=== PATIENT | male | born 1960 | race Two or more races ===

== ENCOUNTER 2016-11-17 21:34 | Emergency (ER) | payer MEDICARE, MEDICAID ==
[2016-11-17 21:44] VITALS: BP 133/83
[2016-11-17] MEDS ORDERED: HYDROcodone/ACETAMIN 5-325 MG* 1 TAB PO ONE ×2 (22:50→23:19)
--- NOTE | 2016-11-17 22:55 | ED ---
Upper Extremity Pain - HPI Summary HPI Summary: Rt hand dominant pt here w/ Rt arm pain after using a hammer aggressively and carrying heavy objects aroun 16L:00 today. Pt reports 30 minutes later, he develop pain, stiffness and swelling. Has developed dark bruising now as well. Denies numbness, tingling, weakness. Still moving UE but can't fully flex elbow d/t pain/stiffness and has pain/stiffness w/ attempted end range extension. Takes ASA daily. Otherwise, no health issues. - History of Current Complaint Chief Complaint: EDExtremityUpper Stated Complaint: RT ARM INJURY Time Seen by Provider: 11/17/16 22:24 Hx Obtained From: Patient - Allergies/Home Medications Allergies/Adverse Reactions: Allergies Allergy/AdvReac Type Severity Reaction Status Date / Time No Known Allergies Allergy Verified 11/17/16 21:41 PMH/Surg Hx/FS Hx/Imm Hx Previously Healthy: Yes Endocrine/Hematology History: Denies: Hx Anticoagulant Therapy - ASA daily, Hx Blood Disorders Cardiovascular History: Reports: Hx Hypertension - takes meds - controlled Musculoskeletal History: Reports: Other Musculoskeletal History - H/o Rt shoulder dislocation as a youth Infectious Disease History: No Infectious Disease History: Denies: Traveled Outside the [place] in Last 30 Days - Family History Known Family History: Positive: None - Social History Occupation: Retired Lives: With Family - staying with son - he's from [facility] Alcohol Use: Weekly - "few beers on weekends" Hx Substance Use: No Substance Use Type: Reports: None Hx Tobacco Use: No Smoking Status (MU): Never Smoked Tobacco Review of Systems Constitutional: Negative Negative: Fever, Chills, Fatigue Negative: Vomiting, Nausea Positive: no symptoms reported Musculoskeletal: Other - see HPI Positive: Bruising - see HPI Neurological: Negative Negative: Weakness, Paresthesia, Numbness Psychological: Normal All Other Systems Reviewed And Are Negative: Yes Physical Exam Triage Information Reviewed: Yes Vital Signs On Initial Exam: Initial Vitals Temp Pulse Resp BP Pulse Ox 98.7 F 83 18 133/83 99 11/17/16 21:40 11/17/16 21:40 11/17/16 21:40 11/17/16 21:40 11/17/16 21:40 Vital Signs Reviewed: Yes Appearance: Positive: Well-Appearing, Well-Nourished, Pain Distress - mild Skin: Positive: Warm, Dry - purpuric ecchymosis over distal ventral Rt bicep w/ early signs of ecchymosis over an edematous and firm bicep Head/Face: Positive: Normal Head/Face Inspection Eyes: Positive: EOMI ENT: Positive: Hearing grossly normal Respiratory/Lung Sounds: Positive: Breath Sounds Present Cardiovascular: Positive: Pulses are Symmetrical in both Upper and Lower Extremities Musculoskeletal: Positive: Strength/ROM Intact - wrist, phalanges, shoulder FROM w/o pain or restriction, Limited @ - Rt elbow extension and flexion limited d/t pain, swelling Neurological: Positive: Normal, Sensory/Motor Intact, Alert, Oriented to Person Place, Time, CN Intact II-III Psychiatric: Positive: Anxious Diagnostics - Vital Signs Vital Signs Temp Pulse Resp BP Pulse Ox 11/17/16 21:40 98.7 F 83 18 133/83 99 - Laboratory Lab Statement: Any lab studies that have been ordered have been reviewed, and results considered in the medical decision making process. Re-Evaluation - Re-Evaluation First Eval Change: Improved Course/Dx - Course Course Of Treatment: Pt appears to have biceps rupture - spoke w/ Dr. Soriano. She advised gently stretches to avoid stiffness, NSAID 600mg BID and sling for comfort. She will see him to discuss repair or he may go back to [facility] to meet with his orthopedist - explained he should be seen in the next couple of days for best outcomes. Reviewed danger s/sx of when to return to ED. Pt agrees w/ plan. - Diagnoses Provider Diagnoses: Rupture of right biceps tendon - Physician Notifications Discussed Care of Patient With: Karen Soriano Discharge - Discharge Plan Condition: Stable Disposition: HOME Patient Education Materials: Tendon Rupture (ED) Referrals: Karen Soriano MD [Medical Doctor] - Additional Instructions: You appear to have torn your bicep muscle in your Right arm. It is important that you rest this muscle. You may GENTLY bend and straighten your elbow to prevent stiffness but DO NOT LIFT, PULL, ETC as you can make this injury worse. Use your sling for comfort as needed. You may apply ice to the area for pain and swelling. You may also take 600mg of ibuprofen 2 times a day - DO NOT EXCEED THIS AMOUNT IT MAY INCREASE BLEEDING IN ARM You may take norco as needed for breakthrough pain Follow-up with orthopedics . Call tomorrow to schedule an appointment with your orthopedist back home or call Dr. Soriano if you decide to stay local. She will see you for . She will discuss options for treatment. *If you develop numbness, tingling, weakness, worsening of pain, return to ED
[2016-11-17] MEDS ORDERED: Ibuprofen TAB* 600 MG PO ONE (23:01)
== END 2016-11-17 23:42 | disposition home or self-care (01) ==
LOC: ED 21:34
DX: S46.211A Strain of muscle, fascia and tendon of other parts of biceps, right arm, initial encounter (principal); X50.9XXA Other and unspecified overexertion or strenuous movements or postures, initial encounter; Y93.9 Activity, unspecified; Y92.9 Unspecified place or not applicable
CPT/HCPCS: 99282; A9270-GY

== ENCOUNTER 2017-12-22 06:10 | Day surgery (SDC) | payer MEDICARE, MEDICAID ==
--- NOTE | 2017-12-09 12:13 | HP ---
PREOPERATIVE HISTORY AND PHYSICAL: DATE OF ADMISSION/SURGERY: 12/22/17 DATE OF OFFICE VISIT: 12/07/17 ATTENDING SURGEON: Dr. Karen Soriano.* (DICTATED BY LOLI RICHARD) PROCEDURE: Right shoulder arthroscopic rotator cuff repair, decompression, and debridement. CHIEF COMPLAINT: Right shoulder pain. HISTORY OF PRESENT ILLNESS: Nj is a 57-year-old male who presented to clinic for followup visit for his right shoulder due to a rotator cuff tear. He failed conservative measures, continued to have pain, and therefore has agreed to undergo right shoulder arthroscopic rotator cuff repair, decompression, and debridement with Dr. Soriano on 12/22/17. PAST MEDICAL HISTORY: Hypertension and high cholesterol. PAST SURGICAL HISTORY: ORIF of the right ankle and hernia surgery as a child. The patient denies prior complications with anesthesia. MEDICATIONS: 1. Lisinopril 20 mg 1 by mouth every day. 2. Aspirin 81 mg 1 by mouth every day. 3. Chlorthalidone 25 mg one-half by mouth every day. 4. Vitamin D 1000 units 1 by mouth daily. 5. Atorvastatin 20 mg 1 by mouth daily. ALLERGIES: No known drug allergies. FAMILY HISTORY: Diabetes, hypertension, and cancer. SOCIAL HISTORY: He lives alone. He is disabled. He denies tobacco use. He reports regular alcohol consumption. He denies illegal drug use. REVIEW OF SYSTEMS: A 14-point review of systems was reviewed with patient. Positive for current complaint, otherwise negative. Denies history of fever, chills, history of shortness of breath, history of DVT or PE, history of bleeding disorder, history of MRSA. PHYSICAL EXAMINATION GENERAL: A 57-year-old well-developed, well-nourished male in no acute distress. Alert and oriented x3. Appropriate mood and affect. Good balance and coordination of the upper extremities. VITAL SIGNS: Height 69.5, weight 184, blood pressure 124/80, respiratory rate 18, temperature 97.9, BMI 26.8. HEENT: Normocephalic, atraumatic. PERRLA. Throat clear. NECK: Supple. PULMONARY: Lungs clear to auscultation bilaterally. No wheezing, rhonchi, or rales. CARDIO: Regular rate and rhythm, S1, S2. No murmurs, gallops, or rubs. No edema. ABDOMEN: Positive bowel sounds. Soft, nontender. NEURO: Alert and oriented x3. Cranial nerves grossly intact. EXTREMITIES: Right upper extremity: Skin is intact. No warmth or erythema. No obvious Seymour deformity. Forward flexion and abduction 160, external rotation 70. +4/5 strength with supraspinatus testing. +2 radial pulse. Sensation is intact to light touch distally. DIAGNOSTIC STUDIES: MRI revealed full-thickness tear of the supraspinatus tendon, degenerative changes of the posterior and superior labrum, and evidence of biceps tear. Subscapularis appears intact. IMPRESSION: Right shoulder rotator cuff tear. PLAN: The patient is scheduled to undergo a right shoulder arthroscopic rotator cuff repair, decompression, and debridement with Dr. Soriano on . Percocet will be used for postop pain management. He will follow up 10 to 14 days postop for followup and suture removal. LOLI RICHARD [id number]/[facility] #: [id number] [facility]ITALPanch[facility]
[~2017-12-22 06:10] MED LIST: Buffered Lidocaine 0.9% SYRIN* 5 ML/SYR SYRINGE INTRADERM ONE; Dexamethasone IV* 4 MG/ML 1 ML (4 MG) IV SLOW PU ONE; Famotidine IV* 10 MG/ML 2 ML (20 mg) IV ONE
[2017-12-22] MEDS ORDERED: Dexamethasone IV* 4 MG/ML 1 ML (4 MG) ONE (06:28)
[2017-12-22] MEDS ORDERED: Famotidine IV* 10 MG/ML 2 ML (20 mg) ONE (06:28)
[2017-12-22] MEDS ORDERED: ceFAZolin 2 GM in NS PREMIX(*) 2 GM/100 ML BAG IVPB ONE (06:28)
[2017-12-22] MEDS ORDERED: Propofol* 10 MG/ML 20 ML BTL IV PUSH ONE (07:10)
[2017-12-22] MEDS ORDERED: Atracurium* 10 MG/ML 10 ML VIAL ONE (07:10)
[2017-12-22] MEDS ORDERED: fentaNYL* 50 MCG/ML 2 ML VIAL (100 MCG VIAL) ONE ×2 (07:10→08:30)
[2017-12-22] MEDS ORDERED: Ondansetron INJ* 2 MG/ML VIAL ONE (07:10)
[2017-12-22] MEDS ORDERED: Midazolam* 1 MG/ML 5 ML VIAL (5 MG) ONE (07:10)
[2017-12-22] MEDS ORDERED: Ketorolac INJ* 30 MG/ML 1 ML VIAL ONE (07:10)
[2017-12-22] MEDS ORDERED: Lidocaine 2% PF * 5 ML VIAL ONE (07:11)
[2017-12-22] MEDS ORDERED: ROPIVACAINE 5 MG/ML 30 ML BTL (0.5%) ONE (07:18)
[2017-12-22] MEDS ORDERED: Glycopyrrolate IV* 0.2 MG/ML 1 ML VIAL ONE (07:55)
[2017-12-22] MEDS ORDERED: Ondansetron INJ* 2 MG/ML VIAL IV PRN (08:11)
[2017-12-22] MEDS ORDERED: DiMENhydriNATE IV* 50 MG/ML VIAL IV PUSH PRN (08:11)
[2017-12-22] MEDS ORDERED: Naloxone* 0.4 MG/ML 1 ML VIAL IV PRN (08:11)
[2017-12-22] MEDS ORDERED: fentaNYL* 50 MCG/ML 2 ML VIAL (100 MCG VIAL) IV PRN (08:11)
[2017-12-22] MEDS ORDERED: Scopolamine 1.5 mg* PATCH TRANSDERM PRN (08:11)
[2017-12-22] MEDS ORDERED: oxyCODONE/Acetamin 5/325 MG* TAB PO PRN (08:11)
[2017-12-22] MEDS ORDERED: HYDROmorphone INJ1* 1 MG/ML SYRINGE IV PRN (08:11)
[2017-12-22 10:26] VITALS: BP 165/90
--- NOTE | 2017-12-23 16:15 | OP ---
CC: PCP OPERATIVE REPORT: DATE OF OPERATION: 12/22/17 DATE OF : 60 ATTENDING SURGEON: Karen Soriano MD BANKRUPTCY JUDGE: OLLI Vaca An speech language pathologist assistant was needed for the entirety of the case to help with positioning, retraction, and was ut ilized throughout all portions of the case. ANESTHESIOLOGIST: Dr. Rubio. ANESTHESIA: General with interscalene block. PRE-OP DIAGNOSIS: Right shoulder full-thickness retracted tear of the supraspinatus with a proximal biceps rupture. POST-OP DIAGNOSIS: Right shoulder full-thickness retracted tear of the supraspinatus with a proximal biceps rupture. OPERATIVE PROCEDURE: Right shoulder arthroscopy with: 1. Extensive glenohumeral debridement including chondroplasty and debridement of the anterior, poste rior, and superior labrum. 2. Subacromial decompression with acromioplasty. 3. Rotator cuff repair of the supraspinatus tendon. COMPLICATIONS: None. ESTIMATED BLOOD LOSS: Minimal. IMPLANTS USED: Two Healicoil and 2 MultiFix. INDICATIONS: Nj Bruner is a 57-year-old male who sustained an injury to his shoulder last year . He was diagnosed with a full-thickness tear of the rotator cuff. He elected to proceed with nonop erative treatment initially, but then he had persistent pain, limitations with activities, and weakne ss. Risks and benefits of surgery were discussed at length include but not limited to bleeding; infe ction; damage to nerves, vessels, surrounding structures; wound nonhealing; persistent pain; need for further surgery; scarring; stiffness; incomplete relief of symptoms; risks of anesthesia. DESCRIPTION OF PROCEDURE: The patient was greeted in the preoperative area by the attending surgeon. Correct extremity was marked and the consent was confirmed. He then underwent interscalene nerve b lock by the anesthesiologist, after which he was brought back to the operating suite. He was placed in supine position on the operating table. He underwent general anesthesia and endotracheal intubati on, after which he was placed in the left lateral decubitus position and secured with a pegboard. Th e right shoulder was draped unsterile with 10-pound retraction. Right shoulder was prepped and drape d in the usual sterile fashion beginning with chlorhexidine soap, scrub, and alcohol wipe, and a lizzy l prep with ChloraPrep. After appropriate surgical pause indicating site, side, procedure, and administration of antibiotics, the standard posterolateral portal was made sharply with an 11-blade. The scope was introduced into the joint. The joint was examined. There was abundant synovitis present. He has some mild osteoar thritis to the shoulder as well. The anterior portal was made in an outside-in fashion. Shaver was u sed to debride the anterior, posterior, superior labrum as well as do a chondroplasty. The undersurf nik of the supraspinatus was in fact torn. The undersurface of the subscap with some mild fraying. The biceps tendon had obviously ruptured previously. Inferior recess was intact. There was a small osteophyte inferiorly. Once the debridement was completed, attention was directed to the subacromial space. With the scope in the subacromial space, the lateral portal was made in an outside- in fashion. Shav er was used to debride the abundant bursa that was present. Once this was completed, the undersurfac e of the acromion was skeletonized using electrocautery device and a 4-0 oval bur was used to do an a cromioplasty. At this point, attention was directed to the rotator cuff. There was evidence of full - thickness U-shaped tear that has been getting turned into an L-shaped tear during supra and infrasp inatus reduction. At this point, the cuff was then carefully debrided back with bony bleeding bed. The greater tuberosity was also prepared in the usual fashion. Electrocautery device as well as a ra sp and a 4-0 oval bur to gently decorticate the bone. First, #2 Ultrabraid suture was placed side-to -side for infra and supraspinatus tendons; then through 2 separate stab incisions, two 4.75 Healicoil were placed with excellent purchase to really get quality bone. Suture was passed through tendon in a horizontal-mattress configuration, then tied down. This helped to reapproximate the tendon to the greater tuberosity. The remaining suture strands were then passed and split between the anteriorly s plit areas. Four strands were brought through an anterior MultiFix anchor, which was placed anterola terally and remaining of 4 strands were placed posterolateral with double-row fixation. Final images were obtained. The wound was copiously irrigated with sterile saline and the portals were closed wi th 3-0 nylon. Sterile dressings were applied. Cryo/Cuff and UltraSling were applied. He was awoken from anesthesia and transferred to the PACU in stable condition. POSTOPERATIVE PLAN: He will be nonweightbearing. He will be discharged on pain medication and antib iotic. I will see the patient back in 10 to 14 days. [id number]/[facility] #: [id number]
== END 2017-12-22 10:56 | disposition home or self-care (01) ==
LOC: OR 06:10
PROVIDERS: ATTEND Orthopaedic Surgery
DX: S46.011A Strain of muscle(s) and tendon(s) of the rotator cuff of right shoulder, initial encounter (principal); S46.111A Strain of muscle, fascia and tendon of long head of biceps, right arm, initial encounter; X58.XXXA Exposure to other specified factors, initial encounter; Y92.9 Unspecified place or not applicable; G89.18 Other acute postprocedural pain; I10 Essential (primary) hypertension; E78.00 Pure hypercholesterolemia, unspecified
CPT/HCPCS: C1713; J0690; J1100; J1885; J2250; J2405; J2704; J2795; J3010